=== PATIENT | male | born 1995 ===

== ENCOUNTER 2019-09-18 23:50 | Emergency (ER) | payer SELFPAY ==
[~2019-09-18] VITALS: Ht 175.3 cm; Wt 83.9 kg
[2019-09-19] MEDS ORDERED: QUET100T PO
[2019-09-19] MEDS ORDERED: FLUO40CA8 PO
--- NOTE | 2019-09-19 00:05 | NUR ---
MD at bedside for MSE, Right knuckle of right middle finger noted profusely bleeding, MD placed two stiches, bleeding cease after stich placement, splint placed on middle finger to restricted bending of middle finger, no complaints of pain, no signs of distress, [facility] called and states pickler helper will be arranged by facility
[2019-09-19] MEDS ORDERED: NEOMY/BACITRA/POLYMYXIN B OINT UD PACKET TP ONE (00:16)
--- NOTE | 2019-09-19 00:53 | NUR ---
Patient discharged to "[facility]" in stable condition. Ambulated in steady manner to vehicle that will be transporting patient back to detox facility. RX for antibiotics given to patient. Instructed not to bend affected finger and return in two days for a wound check. Written and verbal after care instructions given. Patient verbalizes understanding of instructions. Stressed follow up or return to ER for worsening s/s.
[2019-09-19 00:58] VITALS: BP 135/82
== END 2019-09-19 00:53 | disposition home or self-care (01) ==
LOC: ER 23:52
DX: S61.252A Open bite of right middle finger without damage to nail, initial encounter (principal); W64.XXXA Exposure to other animate mechanical forces, initial encounter; Y92.89 Other specified places as the place of occurrence of the external cause; F15.10 Other stimulant abuse, uncomplicated
CPT/HCPCS: A4217; A4663